=== PATIENT | male | born 1950 | race Caucasian/White ===

== ENCOUNTER 2017-11-17 01:00 | Emergency (ER) | payer OTHER ==
[2017-11-17] MEDS ORDERED: ONDANSETRON HCL/PF 4 MG/ 2ML VIAL IVP ONE (01:10)
[2017-11-17] MEDS ORDERED: MORPHINE SULFATE 4 MG/ML PREFILLED SYR IVP ONE (01:13)
--- NOTE | 2017-11-17 01:30 | ED Physician Documentation ---
Chest Pain - HISTORIAN Historian: patient - HPI Stated Complaint: CP Chief Complaint: Chest Pain Additional Information: Sternal chest pain/pressure began at midnight. Radiates to left jaw and mastoid area. Says he couldn't get out of bed because his legs wouldn't support him. Feels like the pain he had with HI a year ago, but worse. Per EMS, crushing CP with 2-3 episodes of 5 second syncope. Pt did not collapse, but stared and did not respond. EMS gave one nitro spray and 324 mg asa. Nitro spray relieved pain for a while. Says his pain is 10/10 at time of exam. BP 113.86, so given morphine and zofran. This helped, but did not relieve CP. Pt refers often to his back pain which is "always" 10/10. Recent lumbar surgery 2 weeks ago and he frequently mentions that there is a big hole in his back that is draining. Until two weeks ago, he was taking long acting morphine and another pain med. Immediately after recent lumbar surgery, he says he took percocet. 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 Last known Well Date: 11/16/17 Last Known Well Time: 12:00 Context: sleep Chest Pain Signs/Symptoms: denies: diaphoresis Worsened By: nothing - ROS CONST: none - PAST HX HI risk factors: AMI, other (AMADOR) DVT/PE Risk Factors: other (cigarettes) TAD/AAA risk factors: none Neuro deficit: none Surgeries/Procedures: other (see above) Allergies/Adverse Reactions: Allergies Allergy/AdvReac Type Severity Reaction Status Date / Time No Known Allergies Allergy Verified 04/18/15 22:36 Home Medications: Ambulatory Orders Medication Instructions Recorded Gabapentin [Neurontin] 600 mg PO TID 07/01/14 Lisinopril [Prinivil] 40 mg PO D 07/01/14 Baclofen 20 mg PO TID 04/18/15 Aspirin EC [Ecotrin] 81 mg PO 11/17/17 Cetirizine HCl [Zyrtec] 10 mg PO 11/17/17 DULoxetine HCL [Cymbalta] 30 mg PO HS 11/17/17 Ibuprofen [Ibu] 800 mg PO TID 11/17/17 Melatonin 1 mg PO 11/17/17 Meloxicam 15 mg PO 11/17/17 Methocarbamol 750 mg PO TID 11/17/17 Pregabalin [Lyrica] 75 mg PO BID 11/17/17 Ranitidine HCl [Heartburn Relief] 150 mg PO BID 11/17/17 Sennosides/Docusate Sodium [Senna 2 each PO BID 11/17/17 Plus Tablet] - SOCIAL HX Smoking History: cigarettes (1 PPD since 18 y/o) Alcohol Use: other (breath smells of ETOH) - FAMILY HX Family HX: none - VITAL SIGNS Vital Signs: Vital Signs Temp Pulse Resp BP Pulse Ox 167/83 04/19/15 01:33 - REVIEWED ASSESSMENTS Nursing Assessment Reviewed: Yes Vitals Reviewed: Yes Progress - Progress Progress: Patient Study Name: KIMBERLEY MARTINEZ Date: November 17, 2017 1:26:43 AM CDT Modality Type: DX Gender: M Description: CHEST : 52 Institution: [facility] Physician: MARYJANE GARNER - ER Portable chest History: Chest pain and shortness of breath Findings: Film artifact limits the exam. The lungs are clear. There is no pleural effusion. Heart size and pulmonary vasculature are normal. Cervical fusion hardware is present. Impression: Negative exam limited by film artifact. Electronically signed on November 17, 2017 1:42:32 AM CDT by: Juan Coker Labs reassuring, including serial Troponin I's, CXR, beautiful EKG's. Ativan never given, as pt calmed, fell asleep. Oxygen placed as his sat's dropped to 89 with snoring sleep. Says he uses CPAP at home. [id number], spoke with Dr. Cobian, [facility] ER physician, who agrees pt can call for followup appointment with cardiologu on . ED Results Lab/Radiology - Orders Orders: ED Orders Category Date Time Status Continuous EKG monitoring Q1H Care 11/17/17 01:[address] IV Lock 1T Care 11/17/17 01:26 Ordered CHEST 1VIEW [RAD] Stat Exams 11/17/17 Ordered CBC/PLATELET/DIFF Routine Lab 11/17/17 Ordered CMP Routine Lab 11/17/17 Ordered TROPONIN I (cTnI) Stat Lab 11/17/17 Ordered URINALYSIS Routine Lab 11/17/17 Ordered Morphine Sulfate [DepoDUR] Med 11/17/17 01:13 Once 4 mg IVP NOW ONE Ondansetron HCl/Pf [Zofran 4 mg/2 ml] Med 11/17/17 01:10 Once 4 mg IVP NOW ONE EKG WITH COMPARISON Stat Ther 11/17/17 Ordered Chest Pain Physical Exam - EXAM General Appearance: moderate distress (very talkative), anxious EENT: eye inspection normal, ENT inspection normal, pharynx normal, SOSA (EOMI) , no nystagmus Neck: nml inspection (well healed ant neck surgical scar), no carotid bruit Respiratory: chest non-tender, nml breath sounds CVS: reg. rate & rhythm, no murmur Abdomen: soft, normal bowel sounds, no abdominal bruit Skin: warm/dry, pallor (slight) Extremities: non-tender, no evidence of injury Neuro: CN's nml as tested, motor nml, sensation nml, cognition normal Discharge Clincal Impression: Chest pain Qualifiers: Chest pain type: precordial pain Qualified Code(s): R07.2 - Precordial pain Referrals: Primary Doctor,No [Primary Care Provider] - 2 Days Condition: Good Disposition: 01 HOME, SELF-CARE Decision to Admit: NO Decision Time: 04:43
[2017-11-17] MEDS ORDERED: NITROGLYCERIN 0.4 MG TAB.SUBL SL ONE (01:38)
[2017-11-17] MEDS ORDERED: ACETAMINOPHEN 500 MG TABLET ONE (01:47)
[2017-11-17] MEDS ORDERED: ACETAMINOPHEN 500 MG TABLET PO ONE (01:47)
[2017-11-17 01:49] LABS: BASOPHILS % 0.7 (0.0-1.5); EOSINOPHILS % 6.4 % (0.0-6.8); MEAN CORPUSCULAR HEMOGLOBIN 31.1 pg (28.0-34.0); MEAN CORPUSCULAR VOLUME 96.4 fl (80.0-100.0); NEUTROPHILS # 4.2 # k/uL (1.4-7.7)
[2017-11-17] MEDS ORDERED: LORazepam 2 MG/ML VIAL IVP ONE (01:52)
[2017-11-17 01:56] LABS: eGFR (African) > 60; eGFR (Non-African) > 60
[2017-11-17 05:13] VITALS: BP 136/72
--- NOTE | 2017-11-17 10:50 | Diagnostic Imaging Report ---
MARYJANE GARNER [facility] [address] [facility] [address] [address] Report Submission Date: November 17, 2017 1:42:32 AM CDT Patient Study Name: KIMBERLEY MARTINEZ Date: November 17, 2017 1:26:43 AM CDT Modality Type: DX Gender: M Description: CHEST : 52 Institution: [facility] Physician: MARYJANE GARNER Portable chest History: Chest pain and shortness of breath Findings: Film artifact limits the exam. The lungs are clear. There is no pleural effusion. Heart size and pulmonary vasculature are normal. Cervical fusion hardware is present. Impression: Negative exam limited by film artifact. Electronically signed on November 17, 2017 1:42:32 AM CDT by: Juan VITALE
== END 2017-11-17 05:00 | disposition home or self-care (01) ==
LOC: ED 01:00
DX: R07.2 Precordial pain (principal)
CPT/HCPCS: 36415; 71045; 80053; 84484; 85025; J2270; J2405; 96374; 96375; 99284; S1016

== ENCOUNTER 2017-12-20 03:24 | Emergency (ER) | payer OTHER ==
[2017-12-20] MEDS ORDERED: KETOROLAC TROMETHAMINE 60 MG/2 ML VIAL IM ONE (03:37)
[2017-12-20] MEDS ORDERED: ONDANSETRON HCL/PF 4 MG/ 2ML VIAL IM ONE (03:37)
[2017-12-20] MEDS ORDERED: MAG HYDROX/ALUMINUM HYD/SIMETH 30 ML UDC PO ONE (03:38)
[2017-12-20] MEDS ORDERED: Lidocaine 2%Visc 15ml 20 MG/ML UDC PO ONE (03:38)
[2017-12-20] MEDS ORDERED: 0.9 % SODIUM CHLORIDE 500 ML IV ONE (03:57)
[2017-12-20] MEDS ORDERED: ONDANSETRON HCL/PF 4 MG/ 2ML VIAL IVP ONE (03:57)
[2017-12-20] MEDS ORDERED: PANTOPRAZOLE SODIUM 40 MG in 0.9 % SODIUM CHLORIDE 50 ML IV SCH (04:00)
[2017-12-20] MEDS ORDERED: KETOROLAC TROMETHAMINE 30 MG/1ML VIAL IVP ONE (04:02)
[2017-12-20] MEDS ORDERED: 0.9 % SODIUM CHLORIDE 1,000 ML IV ONE (04:05)
[2017-12-20] MEDS ORDERED: PANTOPRAZOLE SODIUM INJ. 40 MG VIAL ONE (04:05)
[2017-12-20] MEDS ORDERED: HYOSCYAMINE SULFATE 0.125 MG TAB.SUBL SL ONE (04:06)
[2017-12-20 04:14] LABS: BASOPHILS % 0.5 (0.0-1.5); EOSINOPHILS % 2.6 % (0.0-6.8); MEAN CORPUSCULAR HEMOGLOBIN 31.4 pg (28.0-34.0); MEAN CORPUSCULAR VOLUME 96.5 fl (80.0-100.0); NEUTROPHILS # 7.2 # k/uL (1.4-7.7)
--- NOTE | 2017-12-20 04:23 | ED Physician Documentation ---
Nausea/Vomiting/Diarrhea - HISTORIAN Historian: patient - HPI Stated Complaint: back pain Chief Complaint: Nausea,Vomiting,Diarrhea (vomited blod and threw out back) Onset: hours (1-2) Duration: sudden-onset Last known Well Date: 12/19/17 Last Known Well Time: 23:00 Timing: sudden onset, still present, other (vomited cofee ground emesis in ER x 1) Context: other (taking ASA daily and Ibuprofen 800 mg tid). denies: out of country travel, bad food, recent trauma Severity: moderate Further Comments: no - Associated Symptoms Vomiting: mild, other (coffee ground) Diarrhea: other (none) Abdominal Pain: aching, epigastric - ROS CONST: none CVS/RESP: denies: chest pain, shortness of breath, cough, dry cough, non- productive cough, productive cough, bloody cough GI/: other (coffee ground emesis as described above). denies: constipation, black stools, bloody urine, bloody stools, dark urine, problems urinating EYES/ENT: none MS/SKIN/LYMPH: other (acute left sided low back pain). denies: joint pain, leg swelling, rash, swollen glands, ankle swelling NEURO/PSYCH: other (pain down back of left leg after throwing out back) - PAST HX Past History: other (arthritis) Other History: hypertension Surgeries/Procedures: other (orthopedic) Immunizations: referred to PCP Allergies/Adverse Reactions: Allergies Allergy/AdvReac Type Severity Reaction Status Date / Time No Known Allergies Allergy Verified 12/20/17 03:39 Home Medications: Ambulatory Orders Medication Instructions Recorded Gabapentin [Neurontin] 600 mg PO TID 07/01/14 Lisinopril [Prinivil] 40 mg PO D 07/01/14 Baclofen 20 mg PO TID 04/18/15 Aspirin EC [Ecotrin] 81 mg PO DAILY 11/17/17 Cetirizine HCl [Zyrtec] 10 mg PO DAILY 11/17/17 DULoxetine HCL [Cymbalta] 30 mg PO HS 11/17/17 Ibuprofen [Ibu] 800 mg PO TID 11/17/17 Melatonin 1 mg PO HS 11/17/17 Meloxicam 15 mg PO BID 11/17/17 Methocarbamol 750 mg PO TID 11/17/17 Pregabalin [Lyrica] 75 mg PO BID 11/17/17 Ranitidine HCl [Heartburn Relief] 150 mg PO BID 11/17/17 Sennosides/Docusate Sodium [Senna 2 each PO BID 11/17/17 Plus Tablet] - SOCIAL HX Smoking History: cigarettes Alcohol Use: other (drank today) Drug Use: none - FAMILY HX Family History: none - VITAL SIGNS Vital Signs: Vital Signs Temp Pulse Resp BP Pulse Ox 98.5 F 78 18 133/78 98 12/20/17 03:24 12/20/17 10:18 12/20/17 10:18 12/20/17 10:18 12/20/17 03:24 - REVIEWED ASSESSMENTS Nursing Assessment Reviewed: Yes Vitals Reviewed: Yes Progress - Results/Orders Results/Orders: cbc, cmp, amylase, l-spine and aas ordered - Progress Progress: pt. given 1 liter NS IV, 30 cc Mylanta p.o., 2% viscous Lidocaine 15 cc p.o., Perccet 5/325 p.o., Flexeril 10 mg p.o., Hyoscyamine 0.25 mg p.o., Toradol 30 mg IVP, Pantoprazole 40 mg IVPB and Zofran 8 mg IVP in ER Critical Care Note - Critical Care Note Total Time (mins): 0 ED Results Lab/Radiology - Lab Results Lab Results: Lab Results 12/20/17 12/20/17 04:03 04:03 WBC 10.52 K/ul K/ul (4.00-12.00) RBC 4.74 M/ul M/ul (3.90-5.20) Hgb 14.9 g/dL g/dL (12.0-18.0) Hct 45.7 % % (37.0-53.0) MCV 96.5 fl fl (80.0-100.0) MCH 31.4 pg pg (28.0-34.0) MCHC 32.6 g/dL g/dL (30.0-36.0) RDW 13.3 % % (11.3-14.3) Plt Count 458 K/mm3 H K/mm3 (130-400) Neut % (Auto) 68.4 % % (39.0-79.0) Lymph % (Auto) 22.1 % % (16.0-50.0) [place] % (Auto) 5.0 % % (0.0-11.0) Eos % (Auto) 2.6 % % (0.0-6.8) Baso % (Auto) 0.5 (0.0-1.5) Neut # (Auto) 7.2 # k/uL # k/uL (1.4-7.7) Lymph # (Auto) 2.3 # k/uL # k/uL (0.6-4.0) [place] # (Auto) 0.5 # k/uL # k/uL (0.0-0.9) Eos # (Auto) 0.3 # k/uL # k/uL (0.0-0.6) Baso # (Auto) 0.0 # k/uL # k/uL (0.0-0.5) Reactive Lymphs % 1.5 % % (0.0-5.0) Reactive Lymphs # 0.2 # k/uL # k/uL (0.0-0.8) Sodium 134 mmol/L L mmol/L (136-145) Potassium 4.4 mmol/L mmol/L (3.5-5.1) Chloride 97 mmol/L L mmol/L (98-107) Carbon Dioxide 23 mmol/L mmol/L (22-30) BUN 14 mg/dL mg/dL (9-20) Creatinine 0.70 mg/dL mg/dL (0.66-1.25) Estimated Creat Clear 109 Est GFR ( Amer) > 60 (60 - ) Est GFR (Non-Af Amer) > 60 (60 - ) Glucose 126 mg/dL H mg/dL (74-106) Calcium 10.6 mg/dL H mg/dL (8.4-10.2) Total Bilirubin 0.2 mg/dL mg/dL (0.2-1.3) AST 258 U/L H U/L (15-46) ALT 38 U/L U/L (13-69) Alkaline Phosphatase 106 U/L U/L (38-126) Total Protein 8.9 g/dL H g/dL (6.3-8.2) Albumin 5.1 g/dL H g/dL (3.5-5.0) - Radiology Radiology Impressions: aas unremarkable, L-spine x-ray shows intact hardware, no acute shanell injury - Orders Orders: ED Orders Category Date Time Status Place IV Lock 1T Care 12/20/17 03:57 Active ABD SERIES PA CHEST [RAD] Stat Exams 12/20/17 Completed L SPINE 2 OR 3 VIEWS [RAD] Stat Exams 12/20/17 Completed CBC/PLATELET/DIFF Routine Lab 12/20/17 04:03 Completed CMP Routine Lab 12/20/17 04:03 Completed 0.9 % Sodium Chloride [Normal Saline] 1,000 ml Med 12/20/17 04:30 Discontinued IV .Q1H 0.9 % Sodium Chloride [Normal Saline] 1,000 ml Med 12/20/17 04:05 Discontinued IV .STK-MED 0.9 % Sodium Chloride [Normal Saline] 500 ml Med 12/20/17 03:57 Discontinued IV NOW Cyclobenzaprine HCl [Flexeril] Med 12/20/17 05:40 Discontinued 5 mg PO NOW ONE Hyoscyamine Sulfate [Oscimin Sl] Med 12/20/17 04:06 Discontinued 0.25 mg SL 1T ONE Ketorolac Tromethamine [Toradol] Med 12/20/17 04:02 Discontinued 30 mg IVP NOW ONE Ketorolac Tromethamine [Toradol] Med 12/20/17 03:37 Discontinued 60 mg IM NOW ONE Lidocaine 2%Visc 15ml [Xylocaine] Med 12/20/17 03:38 Discontinued 15 mg PO NOW ONE Mag Hydrox/Aluminum Hyd/Simeth [Mylanta] Med 12/20/17 03:38 Discontinued 30 ml PO NOW ONE Ondansetron HCl/Pf [Zofran 4 mg/2 ml] Med 12/20/17 03:37 Discontinued 8 mg IM NOW ONE Ondansetron HCl/Pf [Zofran 4 mg/2 ml] Med 12/20/17 03:57 Discontinued 8 mg IVP NOW ONE Pantoprazole Sodium [Protonix] Med 12/20/17 04:05 Discontinued 40 mg .ROUTE .STK-MED ONE Pantoprazole Sodium [Protonix] 40 mg Med 12/20/17 04:00 Discontinued 0.9 % Sodium Chloride [Sodium Chloride] 50 ml IV DAILY oxyCODONE HCL/ACETAMINOPHEN [Percocet 5-325 mg Tablet] Med 12/20/17 05:40 Discontinued 1 each PO NOW ONE Nausea Physical Exam - EXAM General Appearance: alert, moderate distress EENT: eye inspection normal, ENT inspection normal, pharynx normal, no signs of dehydration, SOSA, no nystagmus, TM's nml Neck: normal inspection, thyroid normal, supple Respiratory: no resp distress, chest non-tender, breath sounds normal CVS: reg rate & rhythm, heart sounds normal, equal pulses Abdomen: no organomegaly, tenderness (epigastrium). No: guarding, rebound Back: muscle spasm (left lumbar paravertebral muscles). No: vertebral point- tendernes Skin: warm/dry, normal color Extremities: non-tender, normal range of motion, no evidence of injury Neuro/Psych: oriented X3, CN's nml as tested, motor nml, sensation nml, mood/ affect nml, cognition normal Discharge Clincal Impression: Acute lumbar myofascial strain Qualifiers: Encounter type: initial encounter Qualified Code(s): S39.012A - Strain of muscle, fascia and tendon of lower back, initial encounter Gastritis Qualifiers: Gastritis type: unspecified gastritis Chronicity: acute Gastritis bleeding: with bleeding Qualified Code(s): K29.01 - Acute gastritis with bleeding Referrals: Primary Doctor,No [Primary Care Provider] - 2 Days Comments: Discharged in improved and stable condition with scripts for Flexeril 10 mg #15 1 p.o. tid, Carafate 1 gram #40 1 p.o. ac and hs, Zofran ODT 4 mg #15 1 p.o. qid prn n/v and Percocet 10/325 1 p.o. qid prn pain. Condition: Stable Disposition: 01 HOME, SELF-CARE Decision to Admit: NO Decision Time: 05:46
[2017-12-20] MEDS ORDERED: 0.9 % SODIUM CHLORIDE 1,000 ML IV SCH (04:30)
[2017-12-20 04:53] LABS: eGFR (African) > 60; eGFR (Non-African) > 60
--- NOTE | 2017-12-20 05:02 | Diagnostic Imaging Report ---
[facility] [address] [facility].[address] [address] Report Submission Date: Dec 20, 2017 4:59:31 AM CDT Patient Study Name: KIMBERLEY MARTINEZ Date: Dec 20, 2017 4:20:56 AM CDT Modality Type: DX Gender: M Description: CHEST,ABDOMEN : 52 Institution: [facility] Physician: ERNESTINE PEREIRA Chest and abdomen series History: Nausea, vomiting, abdominal pain Findings: The lungs are clear and well expanded. Heart size is normal. Cervical and multilevel lumbar fusion hardware are observed. Right jeyson pelvic surgical clips are present. The bowel gas pattern is normal without obstruction, constipation, or free air. Impression: Postoperative changes with normal bowel gas pattern and clear lungs. Electronically signed on Dec 20, 2017 4:59:31 AM CDT by: Juan VITALE
--- NOTE | 2017-12-20 05:03 | Diagnostic Imaging Report ---
[facility] [address] [facility].[address] [address] Report Submission Date: Dec 20, 2017 5:00:34 AM CDT Patient Study Name: KIMBERLEY MARTINEZ Date: Dec 20, 2017 4:34:57 AM CDT Modality Type: DX Gender: M Description: SPINE : 52 Institution: [facility] Physician: ERNESTINE PEREIRA Lumbar spine 3 views History: Low back pain Findings: L3 through S1 anterior and posterior fusion and decompression are observed. Degenerative disc disease is present at L1/L2 and L2/L3. Atherosclerotic calcifications are present. There is no evidence of fracture or hardware failure. Impression: Multilevel lumbar fusion and decompression. Upper lumbar spondylosis. Electronically signed on Dec 20, 2017 5:00:34 AM CDT by: Juan VITALE
[2017-12-20] MEDS ORDERED: oxyCODONE/ACETAMINOPHEN 5/325 TABLET PO ONE (05:40)
[2017-12-20] MEDS ORDERED: CYCLOBENZAPRINE HCL 5 MG TABLET PO ONE (05:40)
[2017-12-20 10:25] VITALS: BP 133/78
== END 2017-12-20 05:53 | disposition home or self-care (01) ==
LOC: ED 03:24
DX: S39.012A Strain of muscle, fascia and tendon of lower back, initial encounter (principal); K29.01 Acute gastritis with bleeding; X58.XXXA Exposure to other specified factors, initial encounter; Y92.9 Unspecified place or not applicable; Y93.9 Activity, unspecified; Y99.9 Unspecified external cause status
CPT/HCPCS: 72100; 74022; 80053; 85025; A9270; J1885; J2405; J7030; 96365; 96368; 96375; 99284; S1016

== ENCOUNTER 2018-04-12 22:14 | Emergency (ER) | payer OTHER ==
--- NOTE | 2018-04-12 22:30 | ED Physician Documentation ---
General Adult - HISTORIAN Historian: patient, paramedics - HPI Stated Complaint: difficulty swallowing Chief Complaint: General Adult Additional Information: At the [email or web address] at the bar. Had three beers and two shots. Couldn't swallow or breathe. Coughing. Friend called ambulance. Sats said to be 100% on ambient air, but EMS placed him on non-rebreather at 15L/min just in case. HX dysphagia with radiologic swallow study within last two weeks. Says it looked to him as if nothing moved when he swallowed; radiologist had him drink water and it "pushed it on through." Says he is supposed to have an upper gi [facility], but [facility]. Multiple back surgeries and anterior approach c spine surgery. PTSD. Says he has vomited everything he tried to eat the last 2 days. Says he vomited drinks he had this evening. - ROS CONST: no problems - PAST HX Past History: AMI, hypertension, other (AMADOR) Surgeries/Procedures: other (back, ortho) Allergies/Adverse Reactions: Allergies Allergy/AdvReac Type Severity Reaction Status Date / Time No Known Allergies Allergy Verified 04/12/18 22:47 Home Medications: Ambulatory Orders Medication Instructions Recorded Gabapentin [Neurontin] 600 mg PO TID 07/01/14 Lisinopril [Prinivil] 40 mg PO D 07/01/14 Baclofen 20 mg PO TID 04/18/15 Aspirin EC [Ecotrin] 81 mg PO DAILY 11/17/17 Cetirizine HCl [Zyrtec] 10 mg PO DAILY 11/17/17 DULoxetine HCL [Cymbalta] 30 mg PO HS 11/17/17 Ibuprofen [Ibu] 800 mg PO TID 11/17/17 Melatonin 1 mg PO HS 11/17/17 Meloxicam 15 mg PO BID 11/17/17 Methocarbamol 750 mg PO TID 11/17/17 Pregabalin [Lyrica] 75 mg PO BID 11/17/17 Ranitidine HCl [Heartburn Relief] 150 mg PO BID 11/17/17 Sennosides/Docusate Sodium [Senna 2 each PO BID 11/17/17 Plus Tablet] - SOCIAL HX Smoking History: cigarettes (1 PPD x 50 years) Alcohol Use: heavy (regular/daily user) - FAMILY HX Family History: No - VITAL SIGNS Vital Signs: Vital Signs Temp Pulse Resp BP Pulse Ox 133/78 12/20/17 10:18 - REVIEWED ASSESSMENTS Nursing Assessment Reviewed: Yes Vitals Reviewed: Yes Progress - Progress Progress: Report Submission Date: Apr 12, 2018 11:22:10 PM CDT Patient Study Name: KIMBERLEY MARTINEZ Date: Apr 12, 2018 10:54:41 PM CDT Modality Type: DX Gender: M Description: CHEST : 52 Institution: [facility] Physician: MARYJANE GARNER - ER Portable chest History: Difficulty swallowing and breathing Findings: The lungs are clear and well expanded. Heart size and pulmonary vascularity are normal. There is no pleural effusion. Cervical fusion hardware is present. Impression: Clear lungs. Electronically signed on Apr 12, 2018 11:22:10 PM CDT by: Juan Coker ETOH [id number]. Continues to swallow air, belch. These behaviors are more frequent with nurse in the room. Told his nurse he had been at the [employer] drinking since this morning or all day. Can't treat anxiety 2/2 ETOH on board. Says he has an appointment at the [facility] on Apr 23 for UGI. ED Results Lab/Radiology - Orders Orders: ED Orders Category Date Time Status Place IV Lock 1T Care 04/12/18 22:20 Active CHEST 1VIEW [RAD] Stat Exams 04/12/18 Ordered ALCOHOL MEDICAL USE ONLY Stat Lab 04/12/18 Ordered CBC/PLATELET/DIFF Routine Lab 04/12/18 Ordered CMP Routine Lab 04/12/18 Ordered DRUG SCREEN 8,URINE Stat Lab 04/12/18 Ordered General Adult Physical Exam - PHYSICAL EXAM GENERAL APPEARANCE: pulse ox remains 95+ on RA EENT: eye inspection normal, ENT inspection normal, pharynx normal (Mallampati 1) NECK: normal inspection, supple RESPIRATORY: no resp distress, breath sounds normal (holds breath for much of attempted exam) CVS: reg rate & rhythm, heart sounds normal ABDOMEN: soft, normal bowel sounds BACK: normal inspection SKIN: warm/dry, normal color EXTREMITIES: non-tender NEURO: CN's nml as tested, motor nml, sensation nml, other (anxious) Discharge Clincal Impression: Air swallowing, Anxiety Elevated ETOH level Qualifiers: Blood alcohol level: 240 mg/100 ml or more Qualified Code(s): Y90.8 - Blood alcohol level of 240 mg/100 ml or more Referrals: Primary Doctor,No [Primary Care Provider] - 2 Days Additional Instructions: [facility] Condition: Fair Disposition: 01 HOME, SELF-CARE Decision to Admit: NO Decision Time: 23:51
[2018-04-12 23:07] VITALS: BP 152/94
[2018-04-12 23:22] LABS: eGFR (Non-African) > 60
--- NOTE | 2018-04-12 23:29 | Diagnostic Imaging Report ---
MARYJANE GARNER [facility] [address] [facility] [address] [address] Report Submission Date: Apr 12, 2018 11:22:10 PM CDT Patient Study Name: KIMBERLEY MARTINEZ Date: Apr 12, 2018 10:54:41 PM CDT Modality Type: DX Gender: M Description: CHEST : 52 Institution: [facility] Physician: MARYJANE GARNER Portable chest History: Difficulty swallowing and breathing Findings: The lungs are clear and well expanded. Heart size and pulmonary vascularity are normal. There is no pleural effusion. Cervical fusion hardware is present. Impression: Clear lungs. Electronically signed on Apr 12, 2018 11:22:10 PM CDT by: Juan VITALE
== END 2018-04-13 00:05 | disposition home or self-care (01) ==
LOC: ED 22:14
DX: F41.9 Anxiety disorder, unspecified (principal); F45.8 Other somatoform disorders; Y90.8 Blood alcohol level of 240 mg/100 ml or more
CPT/HCPCS: 71045; 80053; 80320; 85025; 99283; G0480; S1016